=== PATIENT | male | born 1970 | race Caucasian/White ===

== ENCOUNTER 2020-09-17 07:01 | Outpatient (NON) | payer OTHER, SELFPAY ==
[2020-09-18 01:24] LABS: SARS-CoV-2 RNA PCR Positive
== END 2020-09-17 07:02 ==
LOC: ANHCOVIDDT 07:01
PROVIDERS: PCP Internal Medicine; Visit Provider Internal Medicine
DX: U07.1 COVID-19 (principal)
CPT/HCPCS: 87635; C9803; U0003

== ENCOUNTER 2021-05-25 14:25 | Emergency (ER) | payer OTHER, SELFPAY ==
--- NOTE | ~2021-05-25 | XR_ITS ---
EXAMINATION: XR chest 1V portable DATE: 05/25/2021 15:24 INDICATION: Syncope. TECHNIQUE: A single frontal view of the chest was obtained. COMPARISON: Chest 2 views 12/27/2003, CT abdomen and pelvis 07/24/2015 FINDINGS: There is mild atelectasis in left lower lung zone. No pleural effusion or pneumothorax. The heart size is normal. IMPRESSION: 1. Mild atelectasis in left lower lung zone. Reviewed, dictated and finalized at location A.
[2021-05-25 14:28] VITALS: PULSE 66; RESP 14; O2SAT 99
[2021-05-25 14:36] VITALS: PULSE 64
--- NOTE | 2021-05-25 14:37 | ECG_ITS ---
Measurements Intervals [place] Rate: 58 P: 22 [place]: 177 QRS: 8 QRSD: 114 T: 7 QT: 432 QTc: 427 Interpretive Statements SINUS BRADYCARDIA LEFT VENTRICULAR HYPERTROPHY CONSIDER INFERIOR INFARCT, AGE INDETERMINATE BASELINE ARTIFACT- II, III, AVF, V3-V6 ABNORMAL ECG Electronically Signed On 05-25-2021 17:21:46 CDT by Oscar Pillai D.O.
[2021-05-25 15:13] LABS: Alveolar/Arterial O2 Gradient 27.5 mmHg; Base Excess ABG -1.5 mEq/l (+/-2.0); Device ROOM AIR; Fractional Inspired Oxygen 21 %; HCO3 ABG 22.3 mEq/l (22.0-26.0); Oxygen Content ABG 23.2 %vol (16.0-22.0); Oxyhemoglobin 93.9 % THb (90.0-100.0); PCO2 ABG 35.8 mmHg (35.0-45.0); PO2 ABG 79.4 mmHg (80.0-100.0); PO2 FiO2 Ratio Arterial Blood 3.78 %; Site Drawn RIGHT BRACHIAL; Total Hemoglobin 17.6 g/dL (12.0-18.0); pH ABG 7.413 (7.350-7.450)
--- NOTE | 2021-05-25 15:30 | ED.SYNCOPE ---
HPI - Syncope General Chief Complaint: Syncope Stated Complaint: HEAT EXHAUSTION Time Seen by Provider: 05/25/21 14:43 Source: patient and RN notes reviewed Mode of arrival: EMS Limitations: no limitations History of Present Illness HPI narrative: Patient is 51 years old white male brought to the emergency room by ambulance because of syncope. 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 Patient went and sat down for a while, woke up on the ground. Unknown duration of passing out. Called his , who called 911. Currently patient is asymptomatic. Patient denies any fever, chills, nausea, vomiting, diarrhea, constipation, abdominal pain, chest pain, shortness of breath, headache. Patient is fully vaccinated for COVID-19, tested -2 days ago for Covid infection. Patient had history of chest cold 5 days ago, was seen by his family physician recently and started on Z-Sebastián and albuterol inhaler. Patient been at home for the last 5 days. Today was the first day to go back to work. History of hypertension. Patient does not smoke or drink or uses drugs. Related Data Allergies Allergy/AdvReac Type Severity Reaction Status Date / Time No Known Allergies Allergy Verified 05/25/21 14:35 Review of Systems Review of Systems: CONSTITUTIONAL: Denies fever, chills, or sweats. EYES: Denies visual changes, redness, or discharge. ENT: Denies rhinorrhea, congestion, sore throat, or otalgia. CARDIOVASCULAR: Denies chest pain, palpitations, or edema. RESPIRATORY: Denies cough or dyspnea. GASTROINTESTINAL: Denies abdominal pain, nausea, vomiting, or diarrhea. GENITOURINARY: Denies dysuria or hematuria. SKIN: Denies rash or itching. MUSCULOSKELETAL: Denies back pain, joint pain, or myalgia. NEUROLOGIC: Denies headache, numbness, or weakness. PSYCHIATRIC: Denies anxiety or depression. Exam Narrative: General appearance: Well-developed, well-nourished Skin: Normal color Head: Normocephalic, nontraumatic Eyes: Clear conjunctiva ENT: Oropharynx normal, ears normal, nose normal Neck: Supple, nontender Chest and respiratory: Airway patent, no respiratory distress, no accessory muscle use Heart: Regular rate/rhythm Abdomen: Soft, nontender, no organomegaly, quiet bowel sounds Vascular: Normal peripheral pulses, normal capillary refill. Musculoskeletal: Normal range of motion, nontender back Neurologic: Alert and oriented ?3, [employer] FILLER is normal as tested, no gross motor deficit Course Course Emergency Course: Improved Vital Signs Vital signs: Vital Signs Pulse Rate 66 05/25/21 14:28 Respiratory Rate 14 05/25/21 14:28 Pulse Oximetry 99 05/25/21 14:28 Pulse Rate 64 05/25/21 14:36 Respiratory Rate 14 05/25/21 14:28 Pulse Oximetry 99 05/25/21 14:28 MDM - Syncope MDM Narrative Medical decision making narrative: Heat exhaustion is my concern. Labs, CT head, IV fluid started. Further plan to follow Work-up showed creatinine of 1.9, unknown at the baseline, dehydration is high likely. Patient condition high likely secondary to a combination of respiratory infection over the last 5 days, antibiotic intake, has been at home without any physical activity for 5 days, today was the first day for him to go to work and very hot environment. Patient denies any lightheadedness or dizziness or chest pain or shortness of breath prior to syncope make the cardiovascular cause extremely less likely. Patient received 2 L of normal saline prior to discharge, been feeling good all the time during hospitalization. A copy of the lab result given to the patient prior to dis
[2021-05-25 15:53] LABS: Basophils Absolute Auto 0.1 K/mm3 (0.0-0.1); Basophils Percent Auto 0.3 % (0.2-1.2); Eosinophils Absolute Auto 0.1 K/mm3 (0-0.3); Eosinophils Percent Auto 0.4 % (0-4.4); Hematocrit 52.1 % (42.0-52.0); Hemoglobin 16.9 g/dL (14.0-18.0); Immature Granulocyte Absolute 0.09 K/mm3 (0.00-0.031); Immature Granulocyte Percent A 0.6 % (0-0.5); Lymphocytes Absolute Auto 1.63 K/mm3 (0.9-3.2); Lymphocytes Percent Auto 10.4 % (18.3-44.2); Mean Corpuscular HGB Conc 32.4 g/dl (32-36); Mean Corpuscular Volume 98.7 fl (80-100); Mean Platelet Volume 10.1 fl (7.4-10.4); Monocytes Absolute Auto 1.1 K/mm3 (0.1-0.6); Monocytes Percent Auto 6.9 % (2.6-8.5); Neutrophils Absolute Auto 12.7 K/mm3 (1.3-6.7); Neutrophils Percent Auto 81.4 % (45.5-73.1); Platelet Count Result 290 k/mm3 (150-375); Red Blood Count 5.28 M/mm3 (4.6-6.20); White Blood Count 15.6 K/mm3 (4.5-10.0)
[2021-05-25] MEDS: SODIUM CHLORIDE 0.9% IV 1,000 ML 999 ML IV CONT ×2 (16:04→16:53)
[2021-05-25 16:15] LABS: Anion Gap 12 mmol/L (8-16); Blood Urea Nitrogen 19 mg/dL (9-20); Calcium 10.1 mg/dL (8.4-10.2); Carbon Dioxide 24 mmol/L (22-30); Chloride 101 mmol/L (98-107); Estimated CRCL calculation 54 ml/min; Estimated Glomerular Filt Rate 37; Glucose 96 mg/dL (65-110); Potassium 3.7 mmol/L (3.4-5.0); Sodium 137 mmol/L (137-145)
[2021-05-25 16:27] LABS: Troponin I < 0.012 ng/mL (0.000-0.034)
[2021-05-25 16:44] LABS: D Dimer 0.38 ug/mL (<0.48)
[2021-05-25 16:56] LABS: Alanine Aminotransferase 46 U/L (4-50); Alkaline Phosphatase 76 U/L (38-126); Aspartate Amino Transferase 39 U/L (17-59); Bilirubin,Total 1.3 mg/dL (0.2-1.3); Creatine Kinase 245 U/L (55-170)
[2021-05-25 17:45] VITALS: BP 112/68; PULSE 78; RESP 16; O2SAT 98
== END 2021-05-25 17:46 | disposition home or self-care (01) ==
PROVIDERS: Emergency Medicine; Emergency Provider Emergency Medicine; PCP Internal Medicine
DX: T67.5XXA Heat exhaustion, unspecified, initial encounter (principal); R55 Syncope and collapse; E86.0 Dehydration; R00.1 Bradycardia, unspecified; I51.7 Cardiomegaly; R94.31 Abnormal electrocardiogram [ECG] [EKG]
CPT/HCPCS: 36415; 36600; 71045; 80048; 80076; 82550; 82805; 84484; 85025; 85380; 93005; 96360; 99284; J7030

== ENCOUNTER 2022-01-02 07:26 | Outpatient (CLI) | payer OTHER, SELFPAY ==
--- NOTE | 2022-01-02 | ECHO_ITS ---
Patient Info Name: Nuno Donnelly Age: 51 years : 1970 Gender: Male Ht: 70 in Wt: 308 lbs BSA: 2.69 m2 HR: 64 bpm BP: 163 / 97 mmHg Exam Date: 01/02/2022 8:08 AM Exam Location: [facility] Patient Status: Outpatient Admit Date: 01/02/2022 Staff Ordering Physician: FaisalAdriano MD Engineering Librarian: Abel Vallejo, DARNELL, RT Attending Provider: CinthiaAdriano MD Exam Type: CA echo doppler color flow Study Info Indications R06.00 - Dyspnea, unspecified Complete two-dimensional, color flow and Doppler transthoracic echocardiogram is performed. Strain analysis performed. Summary 1. Complete two-dimensional, color flow and Doppler transthoracic echocardiogram is performed. 2. Borderline LV enlargement, mild LVH; normal LV systolic function, ejection fraction 55-60%; normal diastolic function. Mitral valve not well visualized, mild mitral annulus calcification. No significant mitral regurgitation. Normal aortic valve, no hemodynamically significant stenosis. Unable to assess RVSP due to inadequate TR jet. Left Ventricle Left ventricular chamber dimension is normal. Left ventricular systolic function is normal, estimated at 55-60%. There is mildly increased left ventricular wall thickness. The left ventricular diastolic function is normal. Right Ventricle Right ventricular chamber dimension is normal. Right ventricular systolic function is normal. Left Atria Left atrial chamber dimension is normal. Right Atria Right atrial chamber dimension is normal. Aortic Valve The aortic valve is not well visualized. There is no aortic valve stenosis. There is no aortic valve regurgitation. Pulmonic Valve The pulmonic valve is not well visualized. There is trace pulmonic regurgitation. Mitral Valve The mitral valve has not well visualized. There is no mitral valve regurgitation. There is mild mitral valve calcification. Tricuspid Valve The tricuspid valve leaflets are normal. There is trace tricuspid valve regurgitation. Pericardium/Pleural The pericardium appears normal. There is no pericardial effusion. Inferior Vena Cava Normal inferior vena cava with >50% collapse upon inspiration consistent with normal right atrial pressure, 8 mmHg. Aorta The aortic root size at the sinus of Valsalva is normal. The prox ascending aorta size is normal. Left Ventricular Outflow Tract Name Value Normal LVOT 2D LVOT Diameter 2.0 cm LVOT Doppler LVOT Peak Gradient 4 mmHg LVOT Mean Gradient 2 mmHg LVOT VTI 23 cm LVOT VTI/AV VTI Ratio 0.9 LVOT Stroke Volume 71 ml LVOT CO 5.0 l/min LVOT CI 1.8 l/min/m2 Mitral Valve Name Value Normal MV Doppler
--- NOTE | 2022-01-02 16:18 | WPDPFTINT ---
PFT Procedure Performed PFT Procedure Performed Plethysmography (Lung Vol) Diffusing Cap (DLCO) Flow Vol Loop Spirometry w/o Bronchodil PFT Interpretation This is a pulmonary function test with spirometry, plethysmography and diffusing capacity. The test was performed and results interpreted in accordance with the 2019 and 2005 ATS/ERS Task Force guidelines respectively using the Global Lung Function Initiative-2012 reference equations. Patient demonstrated good effort and cooperation. Reproducibility criteria were met. The quality of the spirometry maneuver was Grade A. Findings: Spirometry: The contour the inspiratory and expiratory flow tracing are normal. The FVC is 3.88 L, 82% predicted. The FEV1 is 3.04 L, 82% predicted. The FEV1: FVC ratio 79%. Plethysmography: The total lung capacity is 6.22 L, 92% predicted. The functional residual capacity is 2.81 L, 82% predicted. The residual volume is 1.86 L, 92% predicted. Diffusion capacity: The diffusing capacity unadjusted for hemoglobin and carboxyhemoglobin is 28.3, 95% predicted. The diffusing capacity adjusted for alveolar volume is 5.54, 122% predicted. Impression: The spirometry is normal without evidence of an obstructive abnormality. The lung volumes are normal. The diffusing capacity is normal. There are no prior studies for comparison
== END 2022-01-02 07:27 | disposition home or self-care (01) ==
LOC: ANHCARD 07:27
PROVIDERS: PCP Internal Medicine; Visit Provider Internal Medicine
DX: R06.00 Dyspnea, unspecified (principal)
CPT/HCPCS: 93306; 94375; 94726; 94729

== ENCOUNTER 2024-03-13 15:13 | Outpatient (CLI) | payer OTHER, SELFPAY ==
--- NOTE | ~2024-03-13 | CT_ITS ---
EXAMINATION: CT abdomen pelvis wo/w con DATE: 03/13/2024 15:59 INDICATION: Gross hematuria. TECHNIQUE: Computed tomography (CT) of the abdomen and pelvis was performed without and with intraven ous contrast using a total of 130 mL Omnipaque-350 intravenous contrast with a double-bolus technique for simultaneous opacification of the renal parenchyma and renal collecting system. Automated exposu re control and iterative reconstruction technique were employed. The dose-length product was 3600.91 mGy-cm. COMPARISON: CT abdomen and pelvis 07/24/2015 FINDINGS: The visualized portions of the lung bases and show minimal atelectasis. There are 3 mm and 4 mm nodul es in right lower lobe, likely benign. No pleural effusion. The heart size is normal. No pericardial effusion. There are coronary artery calcifications. The liver, gallbladder, spleen, pancreas, and adr enal glands are normal. There is cortical thinning of right kidney. Left kidney is normal. There is n o urolithiasis. The ureters are well opacified and are normal. There are no dilated loops of bowel. T he appendix. There are no pathologically enlarged lymph nodes. There is no free intraperitoneal fluid . There is an umbilical hernia containing fat. There are bilateral inguinal hernias containing fat. T here is moderate thoracic and lumbar spondylosis. IMPRESSION: 1. No etiology for hematuria. Reviewed, dictated and finalized at location E.
[2024-03-13 15:50] LABS: Estimated Glomerular Filt Rate 57
== END 2024-03-13 15:14 | disposition home or self-care (01) ==
LOC: ANHIMG 15:13
PROVIDERS: PCP Internal Medicine; Visit Provider Urology
DX: R31.0 Gross hematuria (principal)
CPT/HCPCS: 74178; Q9967

== ENCOUNTER 2024-10-23 15:09 | Outpatient (CLI) | payer OTHER, SELFPAY ==
--- NOTE | ~2024-10-23 | XR_ITS ---
HISTORY: Pain in left foot COMPARISON: None TECHNIQUE: 3 views of the left foot were performed FINDINGS: No acute fracture or dislocation is appreciated. No significant degenerative disease is noted. The base of the fifth metatarsal is intact. Moderate calcaneal spur is noted. Ossification of the insertion of the Achilles tendon is present. No significant soft tissue swelling is present. IMPRESSION: Degenerative disease without acute fracture. Reviewed, dictated and finalized at location A. R PICKER/ASSEMBLER
== END 2024-10-23 15:10 | disposition home or self-care (01) ==
PROVIDERS: PCP Internal Medicine; Visit Provider Internal Medicine
DX: M79.672 Pain in left foot (principal)
CPT/HCPCS: 73630